=== PATIENT | female | born 1935 | race Two or more races ===

== ENCOUNTER 2017-01-16 23:08 | Inpatient (IN) | payer MEDICARE, OTHER ==
[~2017-01-16] VITALS: Ht 152.4 cm; Wt 71.7 kg
--- NOTE | 2017-01-16 23:12 | NUR ---
to bed 2 bib paramedics c/o sob. wheezing heard bilaterally on auscultation. pt south korean speaking only. pt daughter at bedside to translate. pt aaox4 place pt on cardiac monitoring, continuous pox, o2@2l/nc. er md at bedside to eval pt with orders received.
[2017-01-16] MEDS ORDERED: NITROGLYCERIN 0.4 MG/TAB BOTTLE ONE (23:29)
[2017-01-16] MEDS ORDERED: ASPIRIN 81 MG TAB.CHEW ONE (23:29)
[2017-01-16] MEDS ORDERED: NITROGLYCERIN 0.4 MG/TAB BOTTLE SL ONE (23:30)
[2017-01-16] MEDS ORDERED: ASPIRIN 325 MG TABLET PO ONE (23:30)
[2017-01-16 23:43] LABS: BASOPHILS % (AUTO) 0.3 % (0.0-2.0); EOSINOPHILS # (AUTO) 0.3 /CMM (0.0-0.7); EOSINOPHILS % (AUTO) 4.3 % (0.0-6.0); HEMATOCRIT 36 % (33-45); HEMOGLOBIN 11.4 g/dL (11.5-14.8); LYMPHOCYTES # (AUTO) 2.3 /CMM (0.8-4.8); MEAN CORPUSCULAR HEMOGLOBIN 24 PG (26.0-33.0); MEAN CORPUSCULAR HGB CONC 32 g/dl (31.0-36.0); MEAN CORPUSCULAR VOLUME 77 fL (82-100); MONOCYTES # (AUTO) 0.6 /CMM (0.1-1.30); MONOCYTES % (AUTO) 9.6 % (2.0-12.0); NEUTROPHILS # (AUTO) 2.8 /CMM (1.8-8.9); NEUTROPHILS % (AUTO) 46.8 % (43.0-81.0); PLATELET COUNT (AUTO) 311 /CMM (150-450); RDW COEFFICIENT OF VARIATION 16.6 (11.5-15.0); RED BLOOD CELL COUNT(AUTO) 4.69 MIL/uL (4.0-5.2); WHITE BLOOD COUNT (AUTO) 5.9 K/uL (4.3-11.0)
[2017-01-16 23:55] LABS: CALCIUM, SERUM 8.6 mg/dL (8.5-10.1); CARBON DIOXIDE 29 mmol/L (21-32); CHLORIDE 109 mmol/L (98-107); CREATININE 0.9 mg/dL (0.6-1.3); GLUCOSE 143 mg/dL (74-106); POTASSIUM 3.9 mmol/L (3.5-5.1); SODIUM SERUM 145 mmol/L (136-145); UREA NITROGEN, BLOOD 15 mg/dL (7-18)
[2017-01-16 23:59] LABS: INR 0.96 (0.87-1.13)
[2017-01-17 00:03] LABS: TROPONIN I < 0.017 ng/mL (0.00-0.056)
[2017-01-17 00:09] LABS: B-TYPE NATRIURETIC PEPTIDE 61 PG/ML (0-125)
[2017-01-17] MEDS ORDERED: FUROSEMIDE 40 MG/4 ML VIAL IV ONE (00:30)
--- NOTE | 2017-01-17 00:30 | NUR ---
pt daughter at bedside.
[2017-01-17] MEDS ORDERED: CT SWABBABLE VALVE TRANS SET 1 EA INFUS.SET MC ONE (00:45)
[2017-01-17] MEDS ORDERED: IOHEXOL-300 100 ML VIAL IV ONE ×2 (00:45→01:10)
[2017-01-17] MEDS ORDERED: IV NS 0.9% 250 ML IV ONE (00:45)
--- NOTE | 2017-01-17 01:14 | NUR ---
pt transported to radiolgy for ct chest.
--- NOTE | 2017-01-17 01:25 | NUR ---
pt back from radiology. pending ct result.
--- NOTE | 2017-01-17 01:58 | NUR ---
report called to radiotelephone operatorcarlene Daugherty. pending hospital admission.
[2017-01-17] MEDS ORDERED: FUROSEMIDE 20 MG/2 ML VIAL ONE (02:32)
--- NOTE | 2017-01-17 02:50 | NUR ---
nathanael britt paged per er order.
--- NOTE | 2017-01-17 02:55 | NUR ---
er spoke to nathanael britt regarding pt admission.
[2017-01-17] MEDS ORDERED: MAG HYDROX/AL HYDROX/SIMETH 30 ML UDC PO PRN (03:30)
[2017-01-17] MEDS ORDERED: Z GUARD REMEDY 2 OZ OINT TP PRN (03:30)
[2017-01-17] MEDS ORDERED: MORPHINE SULFATE INJ 2 MG/ML DISP.SYRIN IV PRN (03:30)
[2017-01-17] MEDS ORDERED: ONDANSETRON HCL/PF 4 MG/2 ML VIAL IVP PRN (03:30)
[2017-01-17] MEDS ORDERED: MAGNESIUM HYDROXIDE 30 ML UDC PO PRN (03:30)
[2017-01-17] MEDS ORDERED: HYDROCODONE/APAP 5/325MG 1 EACH TABLET PO PRN (03:30)
[2017-01-17] MEDS ORDERED: ACETAMINOPHEN 325 MG TABLET PO PRN (03:30)
[2017-01-17 04:00] VITALS: BP 149/86
--- NOTE | 2017-01-17 04:16 | NUR ---
TELE/RN OPENING NOTES PT RECEIVED FROM ER VIA LARRY AND FAMILY AT BEDSIDE; ANT (DAUGHTER IN LAW) [phone], WORK #[phone] AND MARCELLE (SON) [phone]. PT IS FAROESE SPEAKING, A/OX3. PLACE ON 2LPM O2 VIA NC, BREATHING IS EVEN, APPEARS LABORED AND NOTES SLIGHT SOB WHICH HAS IMPROVED SINCE COMING INTO THE ER. IV TO LFA PATENT AND INTACT. ORIENTED PT TO ROOM AND CALL LIGHT. PLACE ON TELE MONITOR, SHOWS SINUS RHYTHM WITH 1ST DEGREE AV BLOCK, HR AT 94. BED ALARM ON FOR SAFETY. SIDE RAILS UPX3. BSC PROVIDED. WILL CONTINUE TO MONITOR
--- NOTE | 2017-01-17 04:22 | NUR ---
TELE/RN NOTES PT/FAMILY DOES NOT KNOW THE NAMES OF HOME MEDIATIONS. ASKED ANT TO BRING ALL HER HOME MEDICATIONS IN THE MORNING SO WE CAN INPUT THEM INTO THE COMPUTER AND CONTINUE THEM ACCORDINGLY PER MD ORDER. VERBALIZED UNDERSTANDING.
--- NOTE | 2017-01-17 07:01 | NUR ---
TELE/RN CLOSING NOTES PT SLEEPING INTERMITTENTLY. REMAINS ON 2-3LPM O2 VIA NC. BREATHING EVEN AND UNLABORED AT THIS TIME. SOB AND WHEEZING NOTED ON EXERTION. ON TELE MONITOR, SINUS RHYTHM WITH 1ST DEGREE AV BLOCK, HR AT 82. IV TO LFA PATENT AND INTACT. ALL NEEDS MET AND ATTENDED. MADE PT COMFORTABLE DURING SHIFT. BED IN LOWEST/LOCKED POSITION WITH CALL LIGHT IN REACH. SIDE RAILS UPX3. BED ALARM ON AT ALL TIMES FOR SAFETY. FAMILY TO BRING LIST OF PT'S HOME MEDICATIONS THIS AM. WILL ENDORSE TO AM SHIFT CHERYL.
--- NOTE | 2017-01-17 07:30 | NUR ---
RN OPENING NOTES RECEIVED PATIENT ON BED AWAKE, A/O X 2-3, [place] SPEAKING. ON O2 2-3 LPM VIA NASAL CANULA, O2 SAT 97%. NO S/S OF DISTRESS. SOB ON EXERTION NOTED. ON TELE SR 82 WITH FIRST DERGREE AV BLOCK. IV SITE INTACT AND PATENT. BED IN LOWEST POSITION, LOCKED, BED ALARM ON FOR FALL/SAFETY PRECAUTIONS, HOB ELEVATED, SIDERAILS UPX2. CALL LIGHT IN REACH. WILL CONTINUE TO MONITOR ACCORDINGLY.
[2017-01-17 08:00] VITALS: BP 119/55
--- NOTE | 2017-01-17 09:51 | NUR ---
RN NOTES DR VARGAS ON BEDSIDE. NEW ORDERS NOTED AND CARRIED OUT.
[2017-01-17 12:46] LABS: ALANINE AMINOTRANSFERASE 19 U/L (12-78); ALBUMIN 3.5 g/dL (3.4-5.0); ALKALINE PHOSPHATASE 101 U/L (46-116); ASPARTATE AMINOTRANSFERASE 16 U/L (15-37); BILIRUBIN,TOTAL 0.3 mg/dL (0.2-1.0); CALCIUM, SERUM 8.9 mg/dL (8.5-10.1); CARBON DIOXIDE 33 mmol/L (21-32); CHLORIDE 108 mmol/L (98-107); CREATININE 0.8 mg/dL (0.6-1.3); GLUCOSE 104 mg/dL (74-106); PHOSPHORUS 3.8 mg/dL (2.5-4.9); SODIUM SERUM 146 mmol/L (136-145); TOTAL PROTEIN, SERUM 7.1 g/dL (6.4-8.2); UREA NITROGEN, BLOOD 17 mg/dL (7-18)
[2017-01-17 12:48] LABS: IRON, SERUM 25 ug/dl (50-175); TOTAL IRON BINDING CAPACITY 418 ug/dl (250-450)
[2017-01-17 12:55] LABS: CHOLESTEROL 240 mg/dL (<200); FERRITIN 6 ng/mL (8-388); HDL CHOLESTEROL 32 mg/dL (40-60); LDL 160 mg/dL (0-99); THYROID STIMULATING HORMONE 0.981 uIU/mL (0.358-3.74); TRIGLYCERIDES 268 mg/dL (30-150)
[2017-01-17] MEDS ORDERED: BUPR150T10 PO (13:58)
[2017-01-17] MEDS ORDERED: FURO-145 PO (13:58)
[2017-01-17] MEDS ORDERED: BENA40TA2 PO (13:58)
[2017-01-17] MEDS ORDERED: ASPI81TA2 PO (13:58)
[2017-01-17] MEDS ORDERED: ATOR40TA PO (13:58)
[2017-01-17] MEDS ORDERED: POTA20TA83 PO (13:58)
[2017-01-17] MEDS ORDERED: CARB-94 PO (13:58)
[2017-01-17] MEDS ORDERED: ATEN50TA PO (13:58)
[2017-01-17] MEDS ORDERED: NAPR500T3 PO (13:58)
[2017-01-17] MEDS ORDERED: ZOLP10TA2 PO (13:58)
[2017-01-17] MEDS ORDERED: MECL-102 PO (13:58)
[2017-01-17] MEDS ORDERED: ERGO500047 PO (13:58)
[2017-01-17] MEDS ORDERED: FERR-58 PO (13:58)
[2017-01-17 16:00] VITALS: BP 128/55
--- NOTE | 2017-01-17 19:20 | NUR ---
RN OPEN NOTES RECEIVED PATIENT AWAKE IN BED. A/O X3. NO SIGNS OF DISTRESS OR DISCOMFORT. BREATHING EVEN AND UNLABORED. IV ACCESS IN LFA PATENT AND INTACT, NO SIGNS OF REDNESS OR INFILTRATION. BED IN LOW LOCKED POSITION WITH SIDE RAILS X3. CALL LIGHT WITHIN REACH. WILL CONTINUE TO MONITOR.
--- NOTE | 2017-01-17 19:30 | NUR ---
RN CLOSING NOTES PATIENT IN BED RESTING. NO ACUTE DISTRESS, NO SOB NOTED. ALL NEEDS ATTENDED AND PROVIDED. KEPT SAFE AND COMFORTABLE. BED IN LOW POSITION, LOCKED, HOB ELEVATED, SIDERAILS UPX2, CALL LIGHT IN REACH. ENDORSED TO FRONT OFFICE SPEC RN FOR CHERYL.
[2017-01-17 20:00] VITALS: BP 145/68
[2017-01-17] MEDS ORDERED: ENOXAPARIN SODIUM 40 MG/0.4 ML DISP.SYRIN SQ SCH (20:00)
--- NOTE | 2017-01-17 20:33 | NUR ---
RN NOTES PATIENT REFUSED LOVENOX 40MG X3. PATIENT EDUCATED ON ANTICOAGULATION PROPHYLAXIS. WILL CONTINUE TO MONITOR.
[2017-01-17 20:37] VITALS: BP 145/68
--- NOTE | 2017-01-18 07:34 | NUR ---
RN CLOSING NOTES PATIENT AWAKE IN BED. A/O X3. NO SIGNS OF DISTRESS OR DISCOMFORT. BREATHING EVEN AND UNLABORED. IV ACCESS IN LFA PATENT AND INTACT, NO SIGNS OF REDNESS OR INFILTRATION. NO SIGNIFICANT CHANGES THROUGH THE NIGHT. ALL NEEDS MET. BED IN LOW LOCKED POSITION WITH SIDE RAILS X3. CALL LIGHT WITHIN REACH. ENDORSED TO AM SHIFT FOR CHERYL.
--- NOTE | 2017-01-18 07:35 | NUR ---
RN OPENING NOTES RECEIVED PATIENT IN BED ASLEEP, AROUSES EASILY, A/O X 2-3, [place] SPEAKING. ON O2 2LPM VIA NASAL CANULA, O2 SAT 97%. NO S/S OF DISTRESS, NO SOB NOTED. IV SITE INTACT AND PATENT. BED IN LOWEST POSITION, LOCKED, BED ALARM ON FOR FALL/SAFETY PRECAUTIONS, HOB ELEVATED, SIDERAILS UPX2. CALL LIGHT IN REACH. WILL CONTINUE TO MONITOR ACCORDINGLY.
[2017-01-18 08:00] VITALS: BP 134/54
[2017-01-18 08:29] LABS: ALANINE AMINOTRANSFERASE 19 U/L (12-78); ALBUMIN 3.3 g/dL (3.4-5.0); ALKALINE PHOSPHATASE 91 U/L (46-116); ASPARTATE AMINOTRANSFERASE 17 U/L (15-37); BILIRUBIN,TOTAL 0.4 mg/dL (0.2-1.0); CALCIUM, SERUM 8.6 mg/dL (8.5-10.1); CARBON DIOXIDE 32 mmol/L (21-32); CHLORIDE 109 mmol/L (98-107); CREATININE 0.7 mg/dL (0.6-1.3); GLUCOSE 116 mg/dL (74-106); PHOSPHORUS 3.6 mg/dL (2.5-4.9); POTASSIUM 4.1 mmol/L (3.5-5.1); SODIUM SERUM 145 mmol/L (136-145); TOTAL PROTEIN, SERUM 6.9 g/dL (6.4-8.2); UREA NITROGEN, BLOOD 18 mg/dL (7-18)
[2017-01-18 08:33] LABS: BASOPHILS % (AUTO) 0.3 % (0.0-2.0); EOSINOPHILS # (AUTO) 0.2 /CMM (0.0-0.7); EOSINOPHILS % (AUTO) 4.1 % (0.0-6.0); HEMATOCRIT 37 % (33-45); HEMOGLOBIN 11.9 g/dL (11.5-14.8); LYMPHOCYTES # (AUTO) 1.7 /CMM (0.8-4.8); LYMPHOCYTES % (AUTO) 29.9 % (20.0-44.0); MEAN CORPUSCULAR HEMOGLOBIN 25 PG (26.0-33.0); MEAN CORPUSCULAR HGB CONC 32 g/dl (31.0-36.0); MEAN CORPUSCULAR VOLUME 77 fL (82-100); MONOCYTES # (AUTO) 0.5 /CMM (0.1-1.30); MONOCYTES % (AUTO) 9.4 % (2.0-12.0); NEUTROPHILS # (AUTO) 3.2 /CMM (1.8-8.9); NEUTROPHILS % (AUTO) 56.3 % (43.0-81.0); PLATELET COUNT (AUTO) 239 /CMM (150-450); RDW COEFFICIENT OF VARIATION 16.6 (11.5-15.0); RED BLOOD CELL COUNT(AUTO) 4.78 MIL/uL (4.0-5.2); WHITE BLOOD COUNT (AUTO) 5.6 K/uL (4.3-11.0)
[2017-01-18 09:35] LABS: IRON, SERUM 39 ug/dl (50-175); TOTAL IRON BINDING CAPACITY 403 ug/dl (250-450)
[2017-01-18 11:29] LABS: CHOLESTEROL 251 mg/dL (<200); HDL CHOLESTEROL 35 mg/dL (40-60); LDL 161 mg/dL (0-99); THYROID STIMULATING HORMONE 0.891 uIU/mL (0.358-3.74); TRIGLYCERIDES 197 mg/dL (30-150)
[2017-01-18 12:25] VITALS: BP 150/79
--- NOTE | 2017-01-18 12:55 | NUR ---
RN NOTES DISCHARGE PATIENT IN STABLE CONDITION ACCOMPANIED BY SON AND [facility] THERMAL TECHNICIAN VIA WHEELCHAIR. DISCHARGE INSTRUCTIONS/TEACHING GIVEN, PATIENT SON VERBALIZED UNDERSTANDING, DISCHARGE PAPERWORK GIVEN TO SON. REFUSED TO TAKE PICTURES. IV SITE DISCONTINUED, NO COMPLICATIONS.
[2017-01-18] MEDS ORDERED: SOD FERRIC GLUC 125 MG in IV NS 0.9% 100 ML IV SCH (14:00)
== END 2017-01-18 12:59 | disposition home or self-care (01) | DRG 292 ==
LOC: ER 23:09 → TELE 01-17 01:50 → MED 01-17 10:57
PROVIDERS: ADMIT Nurse Practitioner Acute Care; ATTEND Nurse Practitioner Acute Care
DX: I11.0 Hypertensive heart disease with heart failure (principal); E87.0 Hyperosmolality and hypernatremia; I50.33 Acute on chronic diastolic (congestive) heart failure; D50.9 Iron deficiency anemia, unspecified; K44.9 Diaphragmatic hernia without obstruction or gangrene; E55.9 Vitamin D deficiency, unspecified
CPT/HCPCS: 36415; 71010-TC; 71260-TC; 80048-TC; 80053-TC; 80061-TC; 82306; 82728-TC; 83540-TC; 83735-TC; 83880; 84100-TC; 84439-TC; 84443-TC; 84484-TC; 85025-TC; 85730-TC; 87081-TC; 93307-TC; J1650; J1940; J2916; J7030; J7050; Q9967